=== PATIENT | female | born 1935 | race Caucasian/White ===

== ENCOUNTER 2016-08-26 12:54 | Inpatient (IN) | payer MEDICARE, BC ==
--- NOTE | ~2016-08-26 | CN ---
Consultation Report [facility] [address] [place]. [address] NAME: SYEDA WALLACE : 34 STATUS : ADM IN [facility]#: [id number] AGE: 81 ADM/REG DATE : 08/26/16 MR#: [id number] REPORT SERV DATE: 08/27/16 DICTATED BY: WILLIAM SPRINGER DATE: 08/27/16 REPORT STATUS : Draft TRANSCRIBED BY: MODL DATE: 08/27/16 CONSULTATION. DATE OF CONSULTATION: HISTORY OF PRESENT ILLNESS: This is an 81-year-old woman whom I am asked to see in Dr. Blackburn's absence for evaluation of GI bleeding. This pleasant woman apparently has a history of chronic anticoagulation and some gastrointestinal bleeding in 2010, for which she was evaluated by Dr. Blackburn. There are reports of an EGD and colonoscopy in 01/19/2011. Findings included acute gastritis and external hemorrhoids, but no other significant lesions. She apparently did fairly well until recently. For the past week, she had intermittent black stools and also some lightheadedness and dizziness, which got severe enough yesterday that she presented to the emergency room. INR was 7.7 and hemoglobin was 8.9, which was down from 12.9 in July. She has been hydrated overnight and hemoglobin stands at 7.8. After vitamin K and FFP, her INR is down to 1.4. She denies any abdominal pain. She does admit to occasionally using ibuprofen, but mainly she uses Tylenol for any pain complaints. She says that several times over the past few months, her warfarin dose has been increased, although she seems to be somewhat confused and says that they increase the dose when her INR is over 3. She says that the most recent dose increase was two to three weeks ago. PAST MEDICAL HISTORY: 1. Hypertension. 2. Hyperlipidemia. 3. Coronary artery disease. 4. Hypothyroidism. 5. Atrial fibrillation. 6. History of gastrointestinal bleeding in 2010. PAST SURGICAL HISTORY: Status post CABG, status post hysterectomy, status post cholecystectomy, status post bilateral total knee replacement, and status post left rotator cuff repair. MEDICATIONS: (On admission) Tylenol, Xanax, Norvasc, Lipitor, Catapres, Synthroid, Cozaar, Lopressor, stool softener, and warfarin. ALLERGIES: RIFAMPIN. FAMILY HISTORY: No GI malignancy. Consultation Report [place] [id number] [place]. [address] NAME: SYEDA WALLACE : 34 STATUS : ADM IN [facility]#: [id number] AGE: 81 ADM/REG DATE : 08/26/16 MR#: [id number] REPORT SERV DATE: 08/27/16 DICTATED BY: WILLIAM SPRINGER DATE: 08/27/16 REPORT STATUS : Draft TRANSCRIBED BY: MODL DATE: 08/27/16 SOCIAL HISTORY: She is . She uses no tobacco or alcohol. REVIEW OF SYSTEMS: Otherwise unremarkable for constitutional, endocrine, neurologic, psychiatric, ENT, pulmonary, GI, , or rheumatologic symptoms except for as noted above. PHYSICAL EXAMINATION: GENERAL: She is well nourished, in no acute distress. VITAL SIGNS: Hemodynamically stable. SKIN: Warm and dry. LUNGS: Clear. CARDIOVASCULAR: Regular rhythm without murmur. ABDOMEN: Soft and nontender without mass or organomegaly. EXTREMITIES: No edema. LABORATORY DATA: Hemoglobin was 12.9 in 07/31/2016, it was 8.9 yesterday on admission, and it is down to 7.8 today. White count 3.1 and platelet count 131. INR is down from 7.7 to 1.4 after vitamin K and FFP. Albumin 3.2. Liver enzymes normal. IMPRESSION: Gastrointestinal bleeding, on supratherapeutic anticoagulation. RECOMMENDATIONS: 1. Hold anticoagulation. 2. Monitor INR. 3. Would transfuse if her hemoglobin falls below 7.5. 4. Protonix 40 mg IV q.12 hours. 5. Would plan elective EGD per Dr. Blackburn in the morning. /MODL William Springer M.D. / [id number] CC: MD Toribio Gonzales MD Matthew Bagamery, M.D.
--- NOTE | ~2016-08-26 | DS ---
Discharge Summary [place] [id number] [facility] [place]. [address] NAME: SYEDA CINTRON : 34 STATUS : DIS IN PAT#: [id number] AGE: 81 ADM/REG DATE : 08/26/16 MR#: [id number] REPORT SERV DATE: 08/31/16 DICTATED BY: FABIOLA DILLARD DATE: 08/30/16 REPORT STATUS : Draft TRANSCRIBED BY: MODL DATE: 08/30/16 ADMISSION DATE: 08/26/2016 DISCHARGE DATE: 08/30/2016 REASON FOR ADMISSION: Melanotic stools. Symptomatic anemia. HPI: Please refer Dr. Bentley's history and physical dated 08/27/2016 for complete details regarding the patient's admission. In brief, the patient was admitted to the Hospitalist Service for management of her melanotic stools and anemia. HOSPITAL COURSE: The patient had an uncomplicated hospital course. She presented with a hemoglobin of 8.9 and it dropped to 8 which had been stable for the past 3 days. Of note, her hemoglobin on 07/31/2016 just a month prior was 12.9. She did also present with a supratherapeutic INR with an INR of around 7.5. She was given some FFP. GI Medicine was consulted. Dr. Springer was rock mason for Dr. Blackburn. Dr. Blackburn finally performed an EGD on 08/29/2016 which showed a single gastric polyp, otherwise examination was normal. As stated above, her hemoglobin had been stable. She did have microcytic anemia. Her iron studies had not been performed. She states that she has been having difficulty controlling her Coumadin levels and she is on 5 mg a day regimen for 5/7 days and then 7.5 mg two out of the seven days of the week. She does have a poor appetite, so her supratherapeutic INR could be secondary to nutritional deficiency. She denies any recent antibiotic use. She states that she has been on this regimen for years. The patient also diagnosed with an E. coli urinary tract infection and had been treated for antibiotic for four days, which is now resolved. The patient feels much better. She is tolerating p.o. No nausea, vomiting, or abdominal pain. 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 She has reached maximal hospitalization. Dr. Blackburn has signed off. The patient will be discharged home in stable condition to follow up Coumadin level check in 1 week as we will decrease her Coumadin dosage. DISCHARGE DIAGNOSES: 1. Melanotic stools. Upper GI bleed likely secondary to gastric lining irritation from a supratherapeutic INR, now resolved. 2. Supratherapeutic INR. 3. Paroxysmal atrial fibrillation, on Coumadin. 4. Hyperlipidemia. 5. Hypothyroidism. PROCEDURES: Include consultation with Dr. Blackburn and Dr. Springer, an EGD, transfusion of FFP. DISCHARGE MEDICATIONS: Include Tylenol p.r.n. headache, Xanax 1 mg at bedtime, Lipitor 80 mg at bedtime, Synthroid 75 mcg daily, Cozaar 100 mg every morning, clonidine 0.1 mg p.r.n. for blood pressure greater than 180, metoprolol tartrate 50 mg twice a day, Norvasc 10 mg at bedtime, laxative, Refresh eye drops, Coumadin 3 mg once a day down from 5 mg/7.5 mg. The patient will follow up for INR check in one week and follow up with her PCP along with Discharge Summary [address] [address] NAME: SYEDA CINTRON : 34 STATUS : DIS IN PAT#: [id number] AGE: 81 ADM/REG DATE : 08/26/16 MR#: [id number] REPORT SERV DATE: 08/31/16 DICTATED BY: FABIOLA DILLARD DATE: 08/30/16 REPORT STATUS : Draft TRANSCRIBED BY: MODL DATE: 08/30/16 Dr. Blackburn in a few weeks. Spending over 30 minutes in discharge plan and coordination of care on Ms. Cintron. SAJAN/MARCEL Fabiola Dillard MD / [id number] CC: MD Yobani Joyce M.D.
--- NOTE | ~2016-08-26 | EGD ---
EGD REPORT [facility] [address] [place] [address] NAME: CORAZON CINTRON : 34 STATUS : ADM IN PAT#: [id number] AGE: 81 ADM/REG DATE : 08/26/16 MR#: [id number] REPORT SERV DATE: 08/29/16 DICTATED BY: LEYLA GARCÍA DATE: 08/29/16 REPORT STATUS : Draft [facility]ANSCRIBED BY: [facility] DATE: 08/29/16 Endoscopy Center Patient Name: Corazon Cintron Date of : 1935 Attending MD: LEYLA GARCÍA MD Procedure Date No Time: 08/29/2016 Procedure: Upper GI endoscopy Indications: Melena Referring MD: Toribio Kingsley Medicines: Propofol per Anesthesia Complications: No immediate complications. Procedure: After obtaining informed consent, the endoscope was passed under direct vision. Throughout the procedure, the patient's blood pressure, pulse, and oxygen saturations were monitored continuously. The GIF [id number] was introduced through the mouth, and advanced to the third part of duodenum. The upper GI endoscopy was accomplished without difficulty. The patient tolerated the procedure well. Findings: A single 8 mm pedunculated polyp with no bleeding and no stigmata of recent bleeding was found in the gastric antrum. Biopsies were taken with a cold forceps for histology. Estimated blood loss: none. The exam was otherwise without abnormality. Impression: - A single gastric polyp. Biopsied. - The examination was otherwise normal. Recommendation: - Await pathology results. Procedure Code(s): --- Professional --- 36041, Esophagogastroduodenoscopy, flexible, transoral; with biopsy, single or multiple Diagnosis Code(s): --- Professional --- K31.7, Polyp of stomach and duodenum K92.1, Melena CPT copyright 2013 [employer]. All rights reserved. The codes documented in this report are preliminary and upon casting machine operator automatic review may be revised to meet current compliance requirements. EGD REPORT [facility] [address] [place]. [address] NAME: CORAZON CINTRON : 33 STATUS : ADM IN [facility]#: [id number] AGE: 81 ADM/REG DATE : 08/26/16 MR#: [id number] REPORT SERV DATE: 08/29/16 DICTATED BY: LEYLA GARCÍA DATE: 08/29/16 REPORT STATUS : Draft TRANSCRIBED BY: [employer] DATE: 08/29/16 LEYLA GARCÍA MD 08/29/2016 12:25 PM This report has been signed electronically. Number of Addenda: 0 Note Initiated On: 08/29/2016 12:09 PM Scope Withdrawal Time 0 hours 0 minutes 0 seconds [address] [facility] [place] [address]
--- NOTE | ~2016-08-26 | HP ---
History And Physical [place] [address] [facility] [place]. [address] NAME: SYEDA WALLACE : 34 STATUS : ADM IN [facility]#: [id number] AGE: 81 ADM/REG DATE : 08/26/16 MR#: [id number] REPORT SERV DATE: 08/27/16 DICTATED BY: JESSICA FERREIRA DATE: 08/26/16 REPORT STATUS : Draft TRANSCRIBED BY: MODL DATE: 08/26/16 DATE OF ADMISSION: 08/26/2016 CHIEF COMPLAINT: Lightheadedness, melenic stools. HISTORY OF PRESENT ILLNESS: Ms Wallace is an 81-year-old female with a history of hypertension, hyperlipidemia, coronary artery disease status post CABG, who presented to the hospital with a complaint of melenic stools and lightheadedness and dizziness. The patient states that her symptoms started approximately about one week ago when she noticed worsening fatigue. She also reports that about the same time she also noted that she was having constipation. The patient states that upon finally having a bowel movement she examined her stool and discovered that it was black. The patient states that she decided to monitor her symptoms for a couple of days to see if there will be resolution; however, her symptoms persisted. The patient also reported that she also developed worsening fatigue with activities of daily living, stating that initially she was able to mop her floor without any difficulty. Given her melenic stools not improving and her worsening fatigue, the patient decided to present to have her symptoms evaluated. Upon presenting to the emergency room, preliminary workup included a Hemoccult test, which came back positive. Also, her hemoglobin was noted at 8.9, which is a 4 g drop from lab work obtained on 08/02/2016. Given this finding, decision was made to admit the patient on the Hospitalist Service. The patient reports lightheadedness and dizziness, worse when standing up and improved upon sitting down. At the time of my evaluation, the patient had already had IV fluids administered, so could not check for orthostatic hypotension. The patient denies any fevers, any chills, any nausea or vomiting. She reports constipation, however, other than that, no other complaints. She denies any chest pain, any palpitations, any syncopal episodes. REVIEW OF SYSTEMS: A 14-point review of system was performed. All systems were negative except as noted in the HPI. PAST MEDICAL HISTORY: 1. Coronary artery disease, status post CABG. 2. Hypertension. 3. Hyperlipidemia. 4. Hypothyroidism. PAST SURGICAL HISTORY: 1. Coronary artery bypass graft. 2. Hysterectomy. 3. Cholecystectomy. 4. Bilateral knee replacement. 5. Left rotator cuff repair. FAMILY HISTORY: Noncontributory. History And Physical [address] [address] NAME: SYEDA WALLACE : 34 STATUS : ADM IN [facility]#: [id number] AGE: 81 ADM/REG DATE : 08/26/16 MR#: [id number] REPORT SERV DATE: 08/27/16 DICTATED BY: JESSICA FERREIRA DATE: 08/26/16 REPORT STATUS : Draft TRANSCRIBED BY: MARCEL DATE: 08/26/16 SOCIAL HISTORY: The patient denies any alcohol, tobacco, or illicit drug use. ALLERGIES: THE PATIENT HAS NO KNOWN DRUG ALLERGIES. PHYSICAL EXAMINATION: VITALS: On presentation, blood pressure 108/39 with a pulse of 53, respirations 16, O2 saturation 100% on room air. GENERAL: The patient lying in bed. Appears stated age. Also appears pale. HEENT: Normocephalic and atraumatic. Extraocular motors intact. Pupils round and reactive to light and accommodation. Conjunctival pallor noted. Oral mucosa moist. NECK: Trachea midline and symmetric. No JVD noted. No thyromegaly present. No lymphadenopathy palpated. CHEST: Nontender to palpation. A well-healed scar noted on chest. CARDIOVASCULAR: Regular rate and rhythm. S1, S2. I did not appreciate any murmurs, rubs, or gallops. LUNGS: Clear to auscultation bilaterally. No wheezes, rales, or rhonchi. ABDOMEN: Positive bowel sounds. Nontender. Nondistended. No masses palpated. EXTREMITIES: No cyanosis, no clubbing, no edema. NEUROLOGIC: Alert and oriented x3. No focal deficits present. LABORATORY DATA: WBC 3.8, hemoglobin 8.9, hematocrit 26.6 with an MCV of 90.8, platelets 145. PT 60.0, PTT 57.0, INR 7.0. Sodium 136, potassium 3.9, chloride 106, bicarb 30, BUN 23, creatinine 0.94 with a GFR of 56, glucose 103. Chest x-ray, impression, COPD without focal airspace disease. ASSESSMENT AND PLAN: 1. Upper gastrointestinal bleed. The patient has had a 4 g drop in hemoglobin in less than one month. Her Blatchford score is 11, placing her at a high risk, requiring intervention in the hospital setting. Plan: We will continue IVF. We will continue Protonix. Her hemoglobin is 8.9. No indication for transfusion at this point. We will consult GI to see the patient. 2. Symptomatic anemia secondary to upper gastrointestinal bleed. The patient has dropped her hemoglobin by 4 g in less than one month. We will manage as above. 3. Hypertension. Her blood pressure is low normal on presentation. It was 108. She is currently on IV fluids with improvement of her blood pressure to the 140s. Plan: We will hold off antihypertensives for now and reassess in the morning. 4. Hyperlipidemia. Continue statin therapy. 5. Hypothyroidism. Continue Synthroid. 6. Thrombocytopenia with platelets of 145, unclear etiology at this time. We will continue to monitor. Greater than 50 minutes was spent on admitting the patient. HUBERT/MARCEL History And Physical [address] [address] NAME: SYEDA WALLACE : 34 STATUS : ADM IN [facility]#: [id number] AGE: 81 ADM/REG DATE : 08/26/16 MR#: [id number] REPORT SERV DATE: 08/27/16 DICTATED BY: JESSICA FERREIRA DATE: 08/26/16 REPORT STATUS : Draft TRANSCRIBED BY: MARCEL DATE: 08/26/16 Jessica Ferreira MD / [id number] CC: MD Toribio Gonzales MD
[2016-08-26 11:48] LABS: BASOPHILS 0 %; EOSINOPHILS 0.8 %; EOSINOPHILS ABSOLUTE 0.03 10/3/uL (0.0-0.53); ER CBC TAT 0 Hrs 07 Mins; LYMPHOCYTES ABSOLUTE 1.11 10/3/uL (0.67-4.30); MEAN CORPUS HGB CONC 33.5 g/dL (32.0-36.0); MEAN CORPUSCULAR HEMOGLOB 30.4 pg (26.0-34.0); MEAN CORPUSCULAR VOLUME 90.8 fL (80-100); MEAN PLATELET VOLUME 10.1 fL (9.2-13.0); MONOCYTES 8.1 %; MONOCYTES ABSOLUTE 0.31 10/3/uL (0.21-1.20); NEUTROPHILS 62.1 %; NEUTROPHILS ABSOLUTE 2.38 10/3/uL (2.02-8.40); PLATELET COUNT 145 10/3/uL (150-400); RBC DISTRIBUTION WIDTH 14.4 % (12.0-16.0); WHITE BLOOD CELLS 3.8 10/3/uL (4.5-10.5)
[2016-08-26 11:50] LABS: HEMATOCRIT 26.6 % (36.0-48.0); HEMOGLOBIN 8.9 g/dL (12.0-16.0); MANUAL DIFF NO %; RED CELL COUNT 2.93 10/6/uL (4.0-5.6)
[2016-08-26 12:00] LABS: ASCORBIC ACID (UR NOT ORDER) 40 (NEG); BILIRUBIN, URINE NEGATIVE (NEG); ER URINALYSIS TAT 0 Hrs 19 Mins; KETONE, URINE NEGATIVE (NEG); LEUKOCYTE ESTERASE(NOT OR SMALL (NEG); NITRITE (URINE) NEG (NEG); WBC (NOT ORDERED) (RFLEX) 16 (0-5)
[2016-08-26 12:05] LABS: A/G RATIO 1.5 (0.7-1.9); ALBUMIN 3.5 G/DL (3.5-5.0); CALCIUM, SERUM 8.6 MG/DL (8.5-10.4); CHLORIDE, SERUM 106 MMOL/L (96-112); CO2 (CARBON DIOXIDE) 30 MMOL/L (24-34); CREATININE 0.94 MG/DL (0.55-1.02); GFR AFRICAN AMERICAN 65 ML/MIN (>=60); GFR NON AFRICAN AMERICAN 56 ML/MIN (>=60); GLOBULIN 2.3 G/DL (2.5-4.1); GLUCOSE, SERUM 103 MG/DL (60-99); POTASSIUM, SERUM 3.9 MMOL/L (3.5-5.3); SGOT(AST) 28 U/L (5-40); SGPT(ALT) 28 U/L (5-65); TOTAL BILIRUBIN 0.4 MG/DL (0-1.2); TOTAL PROTEIN 5.8 G/DL (6.0-8.5)
[2016-08-26 12:07] LABS: ALKALINE PHOSPHATASE 47 U/L (45-117); BUN (BLOOD UREA NITROGEN) 23 MG/DL (6-23); SODIUM, SERUM 136 MMOL/L (135-148)
[~2016-08-26 12:54] MED LIST: ADVIL PO; ARMOUR THYRO60 MG PO; B12250T PO; CADUET5 MG/10 MG PO; CALTRA600D PO; COUMADIN4 MG PO; FISH OIL300 MG PO; LOP25 PO; LORTAB 5 PO; NIACIN 500 PO; PRIN10 PO; SYN075 PO; T3 PO; VITAMIN D1000 UNI1 PO; VITC500 PO; XANAX1 MG PO; ZESTRIL20 MG PO
[2016-08-26] MEDS ORDERED: XANAX1 MG PO (13:01)
[2016-08-26] MEDS ORDERED: TYLENOL PM PO (13:02)
[2016-08-26] MEDS ORDERED: LIPITOR80 MG PO (13:03)
[2016-08-26] MEDS ORDERED: NORV10 PO (13:03)
[2016-08-26] MEDS ORDERED: COZAAR100 MG PO (13:03)
[2016-08-26] MEDS ORDERED: SYN075 PO (13:04)
[2016-08-26] MEDS ORDERED: LOP50 PO (13:05)
[2016-08-26] MEDS ORDERED: CAT1 PO (13:05)
[2016-08-26] MEDS ORDERED: JANTOVEN5 MG PO (13:06)
[2016-08-26] MEDS ORDERED: T PO (13:07)
[2016-08-26] MEDS ORDERED: STOOL SOFTENER PO (13:08)
[2016-08-26] MEDS ORDERED: LAXATIVE OTC PO (13:08)
[2016-08-26] MEDS ORDERED: REFRESH OPH (13:09)
[2016-08-27 05:19] LABS: BASOPHILS 0 %; EOSINOPHILS 3.6 %; EOSINOPHILS ABSOLUTE 0.11 10/3/uL (0.0-0.53); HEMOGLOBIN 7.8 g/dL (12.0-16.0); IMMATURE GRANULOCYTES 0.3 %; IMMATURE GRANULOCYTES ABSOLUTE 0.01 10/3/uL (0.0-0.11); LYMPHOCYTES 30.7 %; LYMPHOCYTES ABSOLUTE 0.94 10/3/uL (0.67-4.30); MEAN CORPUS HGB CONC 33.5 g/dL (32.0-36.0); MEAN CORPUSCULAR HEMOGLOB 30.5 pg (26.0-34.0); MEAN PLATELET VOLUME 10.5 fL (9.2-13.0); MONOCYTES 6.5 %; NEUTROPHILS 58.9 %; PLATELET COUNT 131 10/3/uL (150-400); RBC DISTRIBUTION WIDTH 14.4 % (12.0-16.0); RED CELL COUNT 2.56 10/6/uL (4.0-5.6); WHITE BLOOD CELLS 3.1 10/3/uL (4.5-10.5)
[2016-08-27 05:21] LABS: HEMATOCRIT 23.3 % (36.0-48.0); MANUAL DIFF NO %
[2016-08-27 05:22] LABS: INTERNATIONAL NORMAL RATI 1.4 UNITS (-)
[2016-08-27 05:35] LABS: A/G RATIO 1.5 (0.7-1.9); ALBUMIN 3.2 G/DL (3.5-5.0); ALKALINE PHOSPHATASE 48 U/L (45-117); BUN (BLOOD UREA NITROGEN) 15 MG/DL (6-23); CALCIUM, SERUM 8.5 MG/DL (8.5-10.4); CHLORIDE, SERUM 111 MMOL/L (96-112); CO2 (CARBON DIOXIDE) 25 MMOL/L (24-34); CREATININE 0.73 MG/DL (0.55-1.02); GFR AFRICAN AMERICAN 89 ML/MIN (>=60); GFR NON AFRICAN AMERICAN 77 ML/MIN (>=60); GLOBULIN 2.2 G/DL (2.5-4.1); GLUCOSE, SERUM 102 MG/DL (60-99); POTASSIUM, SERUM 3.3 MMOL/L (3.5-5.3); SGOT(AST) 29 U/L (5-40); SGPT(ALT) 25 U/L (5-65); SODIUM, SERUM 144 MMOL/L (135-148); TOTAL BILIRUBIN 0.6 MG/DL (0-1.2); TOTAL PROTEIN 5.4 G/DL (6.0-8.5)
[2016-08-28 04:32] LABS: BASOPHILS 0 %; EOSINOPHILS 4.3 %; EOSINOPHILS ABSOLUTE 0.16 10/3/uL (0.0-0.53); HEMATOCRIT 23.4 % (36.0-48.0); IMMATURE GRANULOCYTES 0.3 %; IMMATURE GRANULOCYTES ABSOLUTE 0.01 10/3/uL (0.0-0.11); LYMPHOCYTES 33.2 %; LYMPHOCYTES ABSOLUTE 1.24 10/3/uL (0.67-4.30); MEAN CORPUS HGB CONC 34.2 g/dL (32.0-36.0); MEAN CORPUSCULAR HEMOGLOB 31.1 pg (26.0-34.0); MEAN CORPUSCULAR VOLUME 91.1 fL (80-100); MEAN PLATELET VOLUME 10.4 fL (9.2-13.0); MONOCYTES 7.2 %; MONOCYTES ABSOLUTE 0.27 10/3/uL (0.21-1.20); NEUTROPHILS ABSOLUTE 2.05 10/3/uL (2.02-8.40); PLATELET COUNT 159 10/3/uL (150-400); RBC DISTRIBUTION WIDTH 14.7 % (12.0-16.0); RED CELL COUNT 2.57 10/6/uL (4.0-5.6); WHITE BLOOD CELLS 3.7 10/3/uL (4.5-10.5)
[2016-08-28 04:35] LABS: MANUAL DIFF NO %
[2016-08-28 04:36] LABS: INTERNATIONAL NORMAL RATI 1.1 UNITS (-)
[2016-08-28 04:40] LABS: PROTIME (NOT ORD) 14.1 SEC (12.0-14.5)
[2016-08-28 04:50] LABS: A/G RATIO 1.4 (0.7-1.9); ALBUMIN 3.3 G/DL (3.5-5.0); ALKALINE PHOSPHATASE 49 U/L (45-117); BUN (BLOOD UREA NITROGEN) 13 MG/DL (6-23); CALCIUM, SERUM 8.2 MG/DL (8.5-10.4); CHLORIDE, SERUM 112 MMOL/L (96-112); CO2 (CARBON DIOXIDE) 27 MMOL/L (24-34); CREATININE 0.68 MG/DL (0.55-1.02); GFR AFRICAN AMERICAN 94 ML/MIN (>=60); GFR NON AFRICAN AMERICAN 81 ML/MIN (>=60); GLOBULIN 2.3 G/DL (2.5-4.1); GLUCOSE, SERUM 108 MG/DL (60-99); POTASSIUM, SERUM 3.5 MMOL/L (3.5-5.3); SGOT(AST) 28 U/L (5-40); SGPT(ALT) 23 U/L (5-65); SODIUM, SERUM 145 MMOL/L (135-148); TOTAL BILIRUBIN 0.5 MG/DL (0-1.2); TOTAL PROTEIN 5.6 G/DL (6.0-8.5)
[2016-08-29 05:32] LABS: BASOPHILS 0 %; EOSINOPHILS 4.4 %; EOSINOPHILS ABSOLUTE 0.16 10/3/uL (0.0-0.53); HEMATOCRIT 23.6 % (36.0-48.0); HEMOGLOBIN 7.8 g/dL (12.0-16.0); IMMATURE GRANULOCYTES 0.3 %; IMMATURE GRANULOCYTES ABSOLUTE 0.01 10/3/uL (0.0-0.11); LYMPHOCYTES ABSOLUTE 1.16 10/3/uL (0.67-4.30); MEAN CORPUS HGB CONC 33.1 g/dL (32.0-36.0); MEAN CORPUSCULAR HEMOGLOB 30.4 pg (26.0-34.0); MEAN CORPUSCULAR VOLUME 91.8 fL (80-100); MEAN PLATELET VOLUME 10.3 fL (9.2-13.0); MONOCYTES 7.2 %; MONOCYTES ABSOLUTE 0.26 10/3/uL (0.21-1.20); NEUTROPHILS 56.1 %; NEUTROPHILS ABSOLUTE 2.04 10/3/uL (2.02-8.40); PLATELET COUNT 178 10/3/uL (150-400); RED CELL COUNT 2.57 10/6/uL (4.0-5.6); WHITE BLOOD CELLS 3.6 10/3/uL (4.5-10.5)
[2016-08-29 05:34] LABS: MANUAL DIFF NO %
[2016-08-29 05:43] LABS: A/G RATIO 1.5 (0.7-1.9); ALBUMIN 3.2 G/DL (3.5-5.0); ALKALINE PHOSPHATASE 42 U/L (45-117); BUN (BLOOD UREA NITROGEN) 9 MG/DL (6-23); CALCIUM, SERUM 8.5 MG/DL (8.5-10.4); CHLORIDE, SERUM 111 MMOL/L (96-112); CO2 (CARBON DIOXIDE) 24 MMOL/L (24-34); CREATININE 0.76 MG/DL (0.55-1.02); GFR AFRICAN AMERICAN 85 ML/MIN (>=60); GFR NON AFRICAN AMERICAN 73 ML/MIN (>=60); GLOBULIN 2.2 G/DL (2.5-4.1); GLUCOSE, SERUM 109 MG/DL (60-99); POTASSIUM, SERUM 3.7 MMOL/L (3.5-5.3); SGOT(AST) 29 U/L (5-40); SGPT(ALT) 26 U/L (5-65); SODIUM, SERUM 145 MMOL/L (135-148); TOTAL BILIRUBIN 0.6 MG/DL (0-1.2); TOTAL PROTEIN 5.4 G/DL (6.0-8.5)
[2016-08-30] MEDS ORDERED: COUMADIN3 MG PO (14:23)
[2016-08-30] MEDS ORDERED: IRON PO (14:27)
== END 2016-08-30 15:14 | disposition home or self-care (01) | DRG 813 ==
LOC: ER 12:54 → 5SO 15:21
PROVIDERS: Emergency Medicine; Hospitalist; Internal Medicine Gastroenterology
PROC: 30233K1 Transfusion of Nonautologous Frozen Plasma into Peripheral Vein, Percutaneous Approach (ICD-10-PCS; 2016-08-29)
PROC: 0DB68ZX Excision of Stomach, Via Natural or Artificial Opening Endoscopic, Diagnostic (ICD-10-PCS; principal; 2016-08-29 12:00)
DX: D68.32 Hemorrhagic disorder due to extrinsic circulating anticoagulants (principal); K92.2 Gastrointestinal hemorrhage, unspecified; D62 Acute posthemorrhagic anemia; D69.6 Thrombocytopenia, unspecified; I10 Essential (primary) hypertension; E78.5 Hyperlipidemia, unspecified; E03.9 Hypothyroidism, unspecified
CPT/HCPCS: 36415; 71010; 80053; 81001; 83690; 85025; 85610; 85730; 86850; 86900; 86901; 86920; 87040; 87077; 87086; 87186; 88305; 88342; 93005; 96365; 96366; 99291; A9270-GY; C9113; J3430; P9059